=== PATIENT | female | born 1980 | race Caucasian/White ===

== ENCOUNTER 2017-01-06 17:19 | Emergency (ER) | payer MEDICAID | END 2017-01-06 19:22 | disposition home or self-care (01) | LOC: D.ER 17:19 | DX: G43.909 Migraine, unspecified, not intractable, without status migrainosus (principal) ==

== ENCOUNTER 2017-05-05 02:19 | Emergency (ER) | payer MEDICAID | END 2017-05-05 02:48 | disposition home or self-care (01) | LOC: D.ER 02:19 | DX: L24.7 Irritant contact dermatitis due to plants, except food (principal); F17.200 Nicotine dependence, unspecified, uncomplicated ==

== ENCOUNTER 2017-12-30 15:51 | Emergency (ER) | payer MEDICAID | END 2017-12-30 18:41 | disposition left against medical advice (07) | LOC: D.ER 15:51 | DX: R11.10 Vomiting, unspecified (principal) ==

== ENCOUNTER 2018-04-30 02:34 | Emergency (ER) | payer MEDICAID ==
[~2018-04-30] VITALS: Ht 170.2 cm; Wt 70.5 kg
[2018-04-30 02:38] VITALS: Ht 170.2 cm; Wt 70.5 kg
[2018-04-30] MEDS ORDERED: BUSPIRONE HCL7.5 MG PO (02:41)
[2018-04-30] MEDS ORDERED: LYRICA75 MG PO (02:41)
[2018-04-30] MEDS ORDERED: NEURONTIN 300300 MG (02:41)
[2018-04-30] MEDS ORDERED: CYCLOBENZAPRINE10 MG PO (02:41)
[2018-04-30] MEDS ORDERED: TOPAMAX100 MG PO (02:42)
[2018-04-30] MEDS ORDERED: IMITREX100 MG (02:42)
[2018-04-30] MEDS ORDERED: PROZAC40 MG PO (02:43)
[2018-04-30 04:15] VITALS: BP 128/74
== END 2018-04-30 04:15 | disposition home or self-care (01) ==
LOC: D.ER 02:34
DX: G43.909 Migraine, unspecified, not intractable, without status migrainosus (principal); R11.0 Nausea; F17.200 Nicotine dependence, unspecified, uncomplicated

== ENCOUNTER 2019-07-28 16:47 | Emergency (ER) | payer MEDICAID ==
[~2019-07-28] VITALS: Ht 170.2 cm; Wt 79.5 kg
[~2019-07-28 16:47] MED LIST: BUSPIRONE HCL7.5 MG PO; CYCLOBENZAPRINE10 MG PO; IMITREX100 MG; LYRICA75 MG PO; NEURONTIN 300300 MG; PROZAC40 MG PO; TOPAMAX100 MG PO
[2019-07-28 17:03] VITALS: Ht 170.2 cm; Wt 79.5 kg
[2019-07-28] MEDS ORDERED: PREDNISONE20 MG PO (18:25)
[2019-07-28] MEDS ORDERED: VISTARIL50 MG PO (18:25)
[2019-07-28 19:14] VITALS: BP 180/97
== END 2019-07-28 19:16 | disposition home or self-care (01) ==
LOC: D.ER 16:47
DX: L23.7 Allergic contact dermatitis due to plants, except food (principal); F17.210 Nicotine dependence, cigarettes, uncomplicated

== ENCOUNTER 2020-05-07 11:32 | Emergency (ER) | payer MEDICAID ==
[~2020-05-07] VITALS: Ht 170.2 cm; Wt 77.3 kg
[~2020-05-07 11:32] MED LIST changes: +PREDNISONE20 MG PO; +VISTARIL50 MG PO
[2020-05-07 11:42] VITALS: Ht 170.2 cm; Wt 77.3 kg
[2020-05-07] MEDS ORDERED: PAXIL10 MG PO (11:43)
[2020-05-07] MEDS ORDERED: PAXIL40 MG PO (11:43)
[2020-05-07 12:51] LABS: BASOPHILS 0.6 % (0-2); EOSINOPHILS 1.3 % (0-7); HEMATOCRIT 35.1 % (36.0-48.0); HEMOGLOBIN 12.1 g/dL (12-16); IMMATURE GRANULOCYTES 0.2 % (0-5); LYMPHOCYTES 40.2 % (15-50); MCH 30.9 pg (26.0-34.0); MCHC 34.5 g/dL (31.0-37.0); MCV 89.5 fL (80.0-100.0); MEAN PLATELET VOLUME 9.4 fL (7.4-10.4); MONOCYTES 12.2 % (2-11); NEUTROPHILS 45.5 % (40-80); PLATELET COUNT 317 10x3/uL (130-400); RBC 3.92 10x6/uL (4.00-5.40); RDW 13.2 % (11.5-14.5)
[2020-05-07 12:57] LABS: ANION GAP 12.7 mmol/L (8-16); CALCIUM 8.4 mg/dL (8.5-10.1); CARBON DIOXIDE 24.3 mmol/L (21.0-32.0)
[2020-05-07] MEDS ORDERED: VISTARIL25 MG PO (13:30)
[2020-05-07 13:40] VITALS: BP 171/80
== END 2020-05-07 13:41 | disposition home or self-care (01) ==
LOC: D.ER 11:32
PROVIDERS: Family Medicine
DX: E87.6 Hypokalemia (principal); F41.9 Anxiety disorder, unspecified; I10 Essential (primary) hypertension; Z72.0 Tobacco use